=== PATIENT | male | born 1985 | race Two or more races ===

== ENCOUNTER 2018-02-14 21:07 | Emergency (ER) | payer SELFPAY ==
[~2018-02-14] VITALS: Ht 170.2 cm; Wt 75.0 kg
[2018-02-14] MEDS ORDERED: PREDNISONE 20MG TABLET PO STA (22:17)
[2018-02-14] MEDS ORDERED: AZITHROMYCIN 500 MG TABLET PO STA (22:17)
[2018-02-14] MEDS ORDERED: IPRATROPIUM BROMIDE (0.02%) 0.5MG/2.5ML NEB HHN STA (22:17)
[2018-02-14] MEDS ORDERED: ALBUTEROL (0.083%) 2.5MG/3ML NEB HHN SCH (22:30)
[2018-02-14 23:52] VITALS: BP 138/79
== END 2018-02-14 23:56 | disposition home or self-care (01) ==
LOC: ER 21:50
DX: J45.901 Unspecified asthma with (acute) exacerbation (principal); Z91.14 Patient's other noncompliance with medication regimen; F17.200 Nicotine dependence, unspecified, uncomplicated
CPT/HCPCS: 94644; 99285; 99406; J7512; J7611; 99283

== ENCOUNTER 2018-03-30 07:36 | Emergency (ER) | payer SELFPAY ==
[~2018-03-30] VITALS: Ht 180.3 cm; Wt 78.0 kg
[2018-03-30] MEDS ORDERED: IPRATROPIUM BROMIDE (0.02%) 0.5MG/2.5ML NEB HHN STA (10:49)
[2018-03-30] MEDS ORDERED: ALBUTEROL (0.083%) 2.5MG/3ML NEB HHN STA (10:49)
[2018-03-30] MEDS ORDERED: PREDNISONE 20MG TABLET PO STA (10:49)
[2018-03-30] MEDS ORDERED: ALBUTEROL (0.083%) 2.5MG/3ML NEB HHN ONE ×2 (12:45→14:00)
[2018-03-30] MEDS ORDERED: IPRATROPIUM BROMIDE (0.02%) 0.5MG/2.5ML NEB HHN ONE (14:00)
[2018-03-30 15:08] VITALS: BP 125/59
== END 2018-03-30 15:10 | disposition home or self-care (01) ==
LOC: ER 07:36
DX: J45.909 Unspecified asthma, uncomplicated (principal); R07.89 Other chest pain; F17.200 Nicotine dependence, unspecified, uncomplicated; R50.9 Fever, unspecified
CPT/HCPCS: 94640; 99284; J7512; J7611; Z7610

== ENCOUNTER 2018-11-03 09:00 | Emergency (ER) | payer SELFPAY ==
[~2018-11-03] VITALS: Ht 170.2 cm; Wt 76.0 kg
[2018-11-03] MEDS ORDERED: PROAIR (09:26)
[2018-11-03] MEDS ORDERED: PREDNISONE 20MG TABLET PO STA (10:35)
[2018-11-03] MEDS ORDERED: ALBUTEROL (0.083%) 2.5MG/3ML NEB HHN STA ×2 (10:35→11:42)
[2018-11-03] MEDS ORDERED: IPRATROPIUM BROMIDE (0.02%) 0.5MG/2.5ML NEB HHN STA (11:42)
[2018-11-03] MEDS ORDERED: ALBUTEROL (0.5%) 2.5MG/0.5ML NEB HHN ONE (14:00)
[2018-11-03 15:22] VITALS: BP 128/75
== END 2018-11-03 15:25 | disposition home or self-care (01) ==
LOC: ER 09:00
DX: R06.02 Shortness of breath (principal); J45.909 Unspecified asthma, uncomplicated; F17.290 Nicotine dependence, other tobacco product, uncomplicated; M54.5 Low back pain; Z91.018 Allergy to other foods
CPT/HCPCS: 99285; J7512; J7611

== ENCOUNTER 2019-10-20 16:17 | Emergency (ER) | payer SELFPAY ==
[~2019-10-20] VITALS: Ht 177.8 cm; Wt 71.0 kg
[~2019-10-20 16:17] MED LIST: PROAIR
[2019-10-20 16:39] VITALS: BP 106/56
[2019-10-20] MEDS ORDERED: IPRATROPIUM BROMIDE (0.02%) 0.5MG/2.5ML NEB HHN STA (16:54)
[2019-10-20] MEDS ORDERED: ALBUTEROL (0.083%) 2.5MG/3ML NEB HHN STA (16:54)
[2019-10-20] MEDS ORDERED: PREDNISONE 20MG TABLET PO STA (16:54)
== END 2019-10-20 17:36 | disposition home or self-care (01) ==
LOC: ER 16:17
DX: J45.901 Unspecified asthma with (acute) exacerbation (principal)
CPT/HCPCS: 94640; 99283; J7512; J7611; Z7610

== ENCOUNTER 2019-10-30 16:00 | Emergency (ER) | payer SELFPAY ==
[~2019-10-30] VITALS: Ht 175.3 cm; Wt 70.0 kg
[2019-10-30] MEDS ORDERED: PREDNISONE 20MG TABLET PO STA (17:13)
[2019-10-30] MEDS ORDERED: IPRATROPIUM BROMIDE (0.02%) 0.5MG/2.5ML NEB HHN STA (17:13)
[2019-10-30] MEDS ORDERED: ALBUTEROL (0.083%) 2.5MG/3ML NEB HHN STA (17:13)
[2019-10-30] MEDS ORDERED: MAGNESIUM 1 G PREMIX 100 ML IV ONE (18:15)
[2019-10-30 19:53] VITALS: BP 127/81
== END 2019-10-30 20:00 | disposition home or self-care (01) ==
LOC: ER 16:00
DX: J45.901 Unspecified asthma with (acute) exacerbation (principal); F17.200 Nicotine dependence, unspecified, uncomplicated; Z91.018 Allergy to other foods
CPT/HCPCS: 94640; 99283; J7512; J7611; Z7610

== ENCOUNTER 2019-11-22 11:16 | Emergency (ER) | payer MEDICAID ==
[~2019-11-22] VITALS: Ht 172.7 cm; Wt 85.0 kg
[2019-11-22] MEDS ORDERED: PREDNISONE 20MG TABLET PO STA (14:44)
[2019-11-22] MEDS ORDERED: ALBUTEROL (0.083%) 2.5MG/3ML NEB HHN STA (14:44)
[2019-11-22] MEDS ORDERED: IPRATROPIUM BROMIDE (0.02%) 0.5MG/2.5ML NEB HHN STA (14:44)
[2019-11-22 17:01] VITALS: BP 135/86
== END 2019-11-22 17:02 | disposition home or self-care (01) ==
LOC: ER 11:27
DX: J45.901 Unspecified asthma with (acute) exacerbation (principal); Z91.018 Allergy to other foods
CPT/HCPCS: 99283; J7512; J7611

== ENCOUNTER 2020-02-10 08:14 | Emergency (ER) | payer MEDICAID ==
[~2020-02-10] VITALS: Ht 170.2 cm; Wt 78.0 kg
[2020-02-10 08:22] VITALS: BP 130/81
[2020-02-10] MEDS ORDERED: IPRATROPIUM/ALBUTEROL 0.5-3(2.5)MG/3ML NEB HHN ONE (08:45)
== END 2020-02-10 09:42 | disposition home or self-care (01) ==
LOC: ER 08:14
DX: J45.901 Unspecified asthma with (acute) exacerbation (principal)
CPT/HCPCS: 94640; 99283; J7610; Z7610

== ENCOUNTER 2020-02-26 11:11 | Emergency (ER) | payer MEDICAID ==
[~2020-02-26] VITALS: Ht 170.2 cm; Wt 78.2 kg
[2020-02-26 11:32] VITALS: BP 138/91
[2020-02-26] MEDS ORDERED: PREDNISONE 20MG TABLET PO STA (11:52)
[2020-02-26] MEDS ORDERED: IPRATROPIUM BROMIDE (0.02%) 0.5MG/2.5ML NEB HHN STA (11:52)
[2020-02-26] MEDS ORDERED: ALBUTEROL (0.083%) 2.5MG/3ML NEB HHN STA (11:52)
== END 2020-02-26 14:47 | disposition home or self-care (01) ==
LOC: ER 11:11
DX: J45.901 Unspecified asthma with (acute) exacerbation (principal); H66.92 Otitis media, unspecified, left ear; Z98.890 Other specified postprocedural states
CPT/HCPCS: 71045; 94640; 99283; J7512; Z7610